=== PATIENT | male | born 1930 | race Caucasian/White ===

== ENCOUNTER → 2017-07-12 | Outpatient (CLI) | payer OTHER | LOC: HYPER 07:03 | DX: I87.313 Chronic venous hypertension (idiopathic) with ulcer of bilateral lower extremity (principal); L97.811 Non-pressure chronic ulcer of other part of right lower leg limited to breakdown of skin; L97.821 Non-pressure chronic ulcer of other part of left lower leg limited to breakdown of skin; E11.622 Type 2 diabetes mellitus with other skin ulcer; E11.59 Type 2 diabetes mellitus with other circulatory complications; I25.10 Atherosclerotic heart disease of native coronary artery without angina pectoris; I87.2 Venous insufficiency (chronic) (peripheral); I65.29 Occlusion and stenosis of unspecified carotid artery; E03.9 Hypothyroidism, unspecified; E66.9 Obesity, unspecified; E78.5 Hyperlipidemia, unspecified; I27.2 Other secondary pulmonary hypertension; E11.22 Type 2 diabetes mellitus with diabetic chronic kidney disease; I13.0 Hypertensive heart and chronic kidney disease with heart failure and stage 1 through stage 4 chronic kidney disease, or unspecified chronic kidney disease; N18.3 Chronic kidney disease, stage 3 (moderate); I50.9 Heart failure, unspecified; E11.51 Type 2 diabetes mellitus with diabetic peripheral angiopathy without gangrene; I25.2 Old myocardial infarction; Z95.0 Presence of cardiac pacemaker; Z86.018 Personal history of other benign neoplasm; Z85.118 Personal history of other malignant neoplasm of bronchus and lung; Z85.51 Personal history of malignant neoplasm of bladder; Z87.891 Personal history of nicotine dependence ==

== ENCOUNTER → 2017-07-20 | Outpatient (CLI) | payer OTHER | LOC: HYPER 07:10 | DX: I87.311 Chronic venous hypertension (idiopathic) with ulcer of right lower extremity (principal); L97.811 Non-pressure chronic ulcer of other part of right lower leg limited to breakdown of skin; L97.821 Non-pressure chronic ulcer of other part of left lower leg limited to breakdown of skin; E11.51 Type 2 diabetes mellitus with diabetic peripheral angiopathy without gangrene; I25.10 Atherosclerotic heart disease of native coronary artery without angina pectoris; E11.22 Type 2 diabetes mellitus with diabetic chronic kidney disease; I13.0 Hypertensive heart and chronic kidney disease with heart failure and stage 1 through stage 4 chronic kidney disease, or unspecified chronic kidney disease; N18.3 Chronic kidney disease, stage 3 (moderate); I50.9 Heart failure, unspecified; E03.9 Hypothyroidism, unspecified; E78.5 Hyperlipidemia, unspecified; I27.2 Other secondary pulmonary hypertension; I25.2 Old myocardial infarction; E66.9 Obesity, unspecified; Z85.51 Personal history of malignant neoplasm of bladder; Z86.018 Personal history of other benign neoplasm; Z85.118 Personal history of other malignant neoplasm of bronchus and lung; Z95.0 Presence of cardiac pacemaker; Z87.891 Personal history of nicotine dependence; Z68.33 Body mass index [BMI] 33.0-33.9, adult ==

== ENCOUNTER → 2017-07-27 | Outpatient (CLI) | payer OTHER | LOC: HYPER 07:01 | DX: I87.313 Chronic venous hypertension (idiopathic) with ulcer of bilateral lower extremity (principal); E11.622 Type 2 diabetes mellitus with other skin ulcer; L97.811 Non-pressure chronic ulcer of other part of right lower leg limited to breakdown of skin; L97.821 Non-pressure chronic ulcer of other part of left lower leg limited to breakdown of skin; E11.51 Type 2 diabetes mellitus with diabetic peripheral angiopathy without gangrene; I25.10 Atherosclerotic heart disease of native coronary artery without angina pectoris; I65.29 Occlusion and stenosis of unspecified carotid artery; D32.9 Benign neoplasm of meninges, unspecified; C34.90 Malignant neoplasm of unspecified part of unspecified bronchus or lung; E03.9 Hypothyroidism, unspecified; Z85.51 Personal history of malignant neoplasm of bladder; E78.5 Hyperlipidemia, unspecified; I25.2 Old myocardial infarction; Z85.118 Personal history of other malignant neoplasm of bronchus and lung; Z95.0 Presence of cardiac pacemaker; Z87.891 Personal history of nicotine dependence; E11.22 Type 2 diabetes mellitus with diabetic chronic kidney disease; I13.0 Hypertensive heart and chronic kidney disease with heart failure and stage 1 through stage 4 chronic kidney disease, or unspecified chronic kidney disease; N18.3 Chronic kidney disease, stage 3 (moderate); I50.9 Heart failure, unspecified ==

== ENCOUNTER → 2017-08-03 | Outpatient (CLI) | payer OTHER | LOC: HYPER 06:54 | DX: E11.622 Type 2 diabetes mellitus with other skin ulcer (principal); L97.811 Non-pressure chronic ulcer of other part of right lower leg limited to breakdown of skin; I87.2 Venous insufficiency (chronic) (peripheral); E11.51 Type 2 diabetes mellitus with diabetic peripheral angiopathy without gangrene; E11.59 Type 2 diabetes mellitus with other circulatory complications; I25.10 Atherosclerotic heart disease of native coronary artery without angina pectoris; D32.9 Benign neoplasm of meninges, unspecified; C34.90 Malignant neoplasm of unspecified part of unspecified bronchus or lung; E03.9 Hypothyroidism, unspecified; E66.9 Obesity, unspecified; Z68.33 Body mass index [BMI] 33.0-33.9, adult; E78.5 Hyperlipidemia, unspecified; I50.9 Heart failure, unspecified; Z87.891 Personal history of nicotine dependence; Z95.0 Presence of cardiac pacemaker ==

== ENCOUNTER → 2017-08-10 | Outpatient (CLI) | payer OTHER | LOC: HYPER 07:02 | DX: E11.622 Type 2 diabetes mellitus with other skin ulcer (principal); L97.811 Non-pressure chronic ulcer of other part of right lower leg limited to breakdown of skin; I87.311 Chronic venous hypertension (idiopathic) with ulcer of right lower extremity; I73.9 Peripheral vascular disease, unspecified; E11.51 Type 2 diabetes mellitus with diabetic peripheral angiopathy without gangrene; E11.59 Type 2 diabetes mellitus with other circulatory complications; C34.90 Malignant neoplasm of unspecified part of unspecified bronchus or lung; D32.9 Benign neoplasm of meninges, unspecified; E03.9 Hypothyroidism, unspecified; E78.5 Hyperlipidemia, unspecified; E11.22 Type 2 diabetes mellitus with diabetic chronic kidney disease; I13.0 Hypertensive heart and chronic kidney disease with heart failure and stage 1 through stage 4 chronic kidney disease, or unspecified chronic kidney disease; N18.3 Chronic kidney disease, stage 3 (moderate); I50.9 Heart failure, unspecified; I25.2 Old myocardial infarction; I25.10 Atherosclerotic heart disease of native coronary artery without angina pectoris; Z95.0 Presence of cardiac pacemaker; Z87.891 Personal history of nicotine dependence ==

== ENCOUNTER → 2017-08-17 | Outpatient (CLI) | payer OTHER | LOC: HYPER 07:03 | DX: I87.311 Chronic venous hypertension (idiopathic) with ulcer of right lower extremity (principal); E11.622 Type 2 diabetes mellitus with other skin ulcer; L97.811 Non-pressure chronic ulcer of other part of right lower leg limited to breakdown of skin; E11.51 Type 2 diabetes mellitus with diabetic peripheral angiopathy without gangrene; E11.59 Type 2 diabetes mellitus with other circulatory complications; I25.10 Atherosclerotic heart disease of native coronary artery without angina pectoris; R60.0 Localized edema; E11.22 Type 2 diabetes mellitus with diabetic chronic kidney disease; I13.0 Hypertensive heart and chronic kidney disease with heart failure and stage 1 through stage 4 chronic kidney disease, or unspecified chronic kidney disease; N18.3 Chronic kidney disease, stage 3 (moderate); I50.9 Heart failure, unspecified; E03.9 Hypothyroidism, unspecified; E78.5 Hyperlipidemia, unspecified; I25.2 Old myocardial infarction; Z85.118 Personal history of other malignant neoplasm of bronchus and lung; Z87.891 Personal history of nicotine dependence ==

== ENCOUNTER → 2017-08-24 | Outpatient (CLI) | payer OTHER | LOC: HYPER 07:13 | DX: I87.311 Chronic venous hypertension (idiopathic) with ulcer of right lower extremity (principal); L97.811 Non-pressure chronic ulcer of other part of right lower leg limited to breakdown of skin; E11.51 Type 2 diabetes mellitus with diabetic peripheral angiopathy without gangrene; I25.10 Atherosclerotic heart disease of native coronary artery without angina pectoris; E11.22 Type 2 diabetes mellitus with diabetic chronic kidney disease; I13.0 Hypertensive heart and chronic kidney disease with heart failure and stage 1 through stage 4 chronic kidney disease, or unspecified chronic kidney disease; N18.3 Chronic kidney disease, stage 3 (moderate); I50.9 Heart failure, unspecified; E11.622 Type 2 diabetes mellitus with other skin ulcer; E03.9 Hypothyroidism, unspecified; E66.9 Obesity, unspecified; E78.5 Hyperlipidemia, unspecified; I27.2 Other secondary pulmonary hypertension; I25.2 Old myocardial infarction; Z95.0 Presence of cardiac pacemaker; Z87.891 Personal history of nicotine dependence; Z85.828 Personal history of other malignant neoplasm of skin; Z85.118 Personal history of other malignant neoplasm of bronchus and lung ==